=== PATIENT | female | born 1980 | race Caucasian/White ===

== ENCOUNTER 2022-05-16 10:08 | Emergency (ER) | payer OTHER ==
[~2022-05-16] VITALS: Ht 152.4 cm; Wt 52.2 kg
[2022-05-16] MEDS ORDERED: IBUPROFEN600 MG PO (18:40)
== END 2022-05-16 10:52 | disposition home or self-care (01) ==
LOC: ER 10:13
DX: R23.3 Spontaneous ecchymoses (principal); V43.52XA Car driver injured in collision with other type car in traffic accident, initial encounter; Y92.488 Other paved roadways as the place of occurrence of the external cause; F41.9 Anxiety disorder, unspecified
CPT/HCPCS: 99282

== ENCOUNTER 2022-05-16 15:51 | Emergency (ER) | payer OTHER ==
[~2022-05-16] VITALS: Ht 152.4 cm; Wt 52.2 kg
[2022-05-16] MEDS ORDERED: IBUPROFEN 600 MG TAB PO STA (16:08)
[2022-05-16] MEDS ORDERED: IBUPROFEN600 MG PO (18:40)
== END 2022-05-16 18:50 | disposition home or self-care (01) ==
LOC: ER 16:03
DX: R07.89 Other chest pain (principal); S20.212A Contusion of left front wall of thorax, initial encounter; V43.52XA Car driver injured in collision with other type car in traffic accident, initial encounter; Y92.488 Other paved roadways as the place of occurrence of the external cause
CPT/HCPCS: 71101; 81025; 99283